=== PATIENT | male | born 2000 | race Caucasian/White ===

== ENCOUNTER 2021-01-24 09:50 | Emergency (ER) | payer MEDICAID, SELFPAY ==
--- NOTE | 2021-01-24 09:51 | ECG_ITS ---
APPROVED REPORT Exam: Resting ECG HR:92 bpm ECG Measurements Heart Rate 92 AXES MN 130 P 46 QRSd 92 QRS 68 QT 332 T 34 QTc 410 Conclusion Normal sinus rhythm Normal ECG Electronically signed by : Derek Becerra MD 01/25/2021 21:05:41
[2021-01-24 09:54] VITALS: BP 151/88; PULSE 89; RESP 20; TEMP 36.7; O2SAT 98; BMI 34.4
--- NOTE | 2021-01-24 09:56 | HMH.EDCP ---
ED Disposition Clinical Impression: Atypical chest pain Disposition: Home, Self-Care Condition on Discharge: Good Instructions: DI for Atypical Chest Pain Additional Instructions: Follow-up with your primary care physician in about 1 week even if you feel well. Return to the emergency department immediately if you feel worse in any way. Avoid all kinds of drugs. You may take gstz-lld-zedofyr ibuprofen for the chest pain you have experienced today. - Critical Care Critical Care Time: No Attestation: On , the high probability of a clinically significant, sudden or life threatening deterioration of the following system(s) required my full and direct attention, intervention and personal management. The time I documented below is in addition to time spent performing reported procedures but includes the following listed in this critical care notation. Medical Decision Making - Medical Records Medical records reviewed: Yes: I reviewed the patient's medical records. - Keith Inquiry Pt receiving controlled substance: No Vital Signs: 01/24/21 09:54 Temperature 98.1 F Temperature Source Oral Pulse Rate [Right] 89 Respiratory Rate 20 Blood Pressure [Right Arm] 151/88 H Blood Pressure Mean [Right Arm] 109 02 Sat by Pulse Oximetry 98 Oxygen Delivery Method Room Air - Lab Data Lab results reviewed: Yes: I reviewed the patient's lab results. Lab Results 01/24/21 09:55: WBC 7.2, RBC 5.10, Hgb 15.2, Hct 43.0, MCV 84.3, MCH 29.9, MCHC 35.4, RDW 12.7, Plt Count 266, MPV 8.3, Neut % (Auto) 60.9, Lymph % (Auto) 28.1, Mower % (Auto) 5.9, Eos % (Auto) 4.3, Baso % (Auto) 0.7, Neut # (Auto) 4.4, Lymph # (Auto) 2.0, Mower # (Auto) 0.4, Eos # (Auto) 0.3, Baso # (Auto) 0.1 01/24/21 09:55: Sodium 140, Potassium 4.1, Chloride 106, Carbon Dioxide 27, Anion Gap 11.1, BUN 11, Creatinine 0.80, Estimated Creat Clear 227, Estimated GFR 123, Est GFR ( Amer) 149, Glucose 103 H, Calcium 9.3, Total Bilirubin 0.4, AST 28, ALT 26, Alkaline Phosphatase 91, Troponin I < 0.01, Total Protein 7.6, Albumin 4.6, Globulin 3.0, Albumin/Globulin Ratio 1.5 Result diagrams: 01/24/21 09:55 01/24/21 09:55 Orders (Tests/Meds): ED MEDICATIONS Discontinued Medications Generic Name Dose Route Start Last Admin Trade Name Migel PRN Reason Stop Dose Admin Aspirin 324 mg 01/24/21 09:58 01/24/21 10:07 Aspirin 81mg Chewable Tablet PO 01/24/21 09:59 324 mg ONCE ONE Administration Ketorolac Tromethamine 30 mg 01/24/21 09:58 01/24/21 10:06 Ketorolac 30mg/Ml Vial IV 01/24/21 09:59 30 mg ONCE ONE Administration ORDERS Category Date Time Status Troponin I Q3H Lab 01/24/21 13:00 Ordered Troponin I Q3H Lab 01/24/21 16:00 Ordered - Radiology Data #1 Image(s): Chest Image Reviewed: Yes I reviewed the patient's radiology results, Yes I reviewed the patient's radiology image, Yes I reviewed the patient's radiology image w/the ED provider Preliminary Findings: Normal/NAD - ECG Data Tracing #1 I reviewed this ECG and interpreted as documented below: The patient is EKG was done at 952. It shows a normal sinus rhythm at 92 bpm there is no evidence of ischemia, there no dysrhythmias, the axes are normal. This is a normal EKG. Normal Sinus Rhythm: Yes - Reevaluation(s) Time: 10:50 Reevaluation #1: The patient's chest pain improved with Toradol. - ELTON Score for Non-Stemi Age of Patient: <30 years old Heart Rate: 70-89 bpm Systolic Blood Pressure: 140-159 mmHg Serum Creatinine: 0.80-1.19 mg/dl CHF Killip Class: I-No CHF Other Risk Factors: None Non-Stemi Risk Score: 40 Medical Decision Narrative: The patient presented to the emergency department complaining of midsternal sharp chest pain. It is reproducible with palpation and movement. The patient has no risk factors for coronary artery disease. His work-up in the emergency department did not reveal any dangerous or life-threatening conditions cau
--- NOTE | 2021-01-24 09:58 | XR_ITS ---
PROCEDURE: XR CHEST PORTABLE CLINICAL HISTORY: Dyspnea, COVID+, CP COMPARISON: No exams were available for comparison FINDINGS: The cardiomediastinal silhouette and pulmonary vascularity are within normal limits. The lungs are clear without infiltrates, suspicious nodules, or pleural effusions. No acute bony abnormalities. IMPRESSION: No acute findings. Dictated by: Francisco Javier Esqueda MD 01/24/2021 10:21 Francisco Javier Esqueda MD in [place] 01/24/2021 10:21
[2021-01-24 10:07] LABS: Basophils # 0.1 K/mm3 (0-0.2); Basophils % 0.7 % (0.1-2.0); Eosinophils # 0.3 K/mm3 (0.0-0.4); Eosinophils % 4.3 % (0.1-12.0); Hemoglobin 15.2 g/dL (14.1-18.0); Lymphocytes % 28.1 % (10-50); Mean Corpuscular HGB Conc 35.4 g/dL (31.8-35.4); Mean Corpuscular Hemoglobin 29.9 pg (27.0-31.2); Mean Corpuscular Volume 84.3 fl (80-94); Mean Platelet Volume 8.3 fl (7.4-10.4); Monocytes # 0.4 K/mm3 (0.1-1.0); Monocytes % 5.9 % (1.7-9.3); Neutrophils # 4.4 K/mm3 (1.8-7.8); Neutrophils % 60.9 % (37.0-80.0); Platelet Count 266 K/mm3 (142-424); Red Cell Distribution Width 12.7 % (11.5-17.5); White Blood Count 7.2 K/mm3 (4.5-13.0)
[2021-01-24 10:11] LABS: Potassium 4.1 mmoL/L (3.5-5.1); Sodium 140 mmol/L (136-145)
[2021-01-24 10:12] LABS: Chloride 106 mmol/L (98-107)
[2021-01-24 10:14] LABS: Alanine Aminotransferase 26 U/L (12-78); Albumin Level 4.6 g/dl (3.5-5.0); Albumin/Globulin Ratio 1.5 (1.1-1.8); Alkaline Phosphatase 91 U/L (38-126); Anion Gap 11.1 mEq/L (5-15); Aspartate Amino Transferase 28 U/L (17-59); Bilirubin,Total 0.4 mg/dl (0.2-1.3); Blood Urea Nitrogen 11 mg/dl (9-20); Calcium 9.3 mg/dl (8.4-10.2); Carbon Dioxide 27 mmol/L (22.0-30.0); Creatinine Clearance Estimated 227 mL/min (50-200); Estimated Glomerular Filt Rate 123 ml/min (>60); GFR (African American) 149 ML/MIN (>60); Glucose 103 mg/dl (74-100); Total Protein,Serum 7.6 g/dl (6.3-8.2)
[2021-01-24 10:27] LABS: Troponin I < 0.01 ng/ml (0.00-0.034)
[2021-01-24 11:21] VITALS: BP 150/84; PULSE 95; RESP 20; TEMP 36.7; O2SAT 98
== END 2021-01-24 11:22 | disposition home or self-care (01) ==
PROVIDERS: Emergency Provider Emergency Medicine; PCP Internal Medicine
DX: R07.89 Other chest pain (principal)
CPT/HCPCS: 71045; 80053; 84484; 85025; 93005; 96374; 99282

== ENCOUNTER 2025-06-16 11:10 | Emergency (ER) | payer OTHER, SELFPAY ==
--- OUTSIDE RECORDS SUMMARY | 2025-04-30 22:33 | XMS_ITS | Continuity of Care Document ---
Author Organization [facility] Phone Care Team Providers Care [employer] Teacher Name Role Phone CODY JIMENEZ Admitting Unavailable YAJAIRA, ALIS Unavailable Unavailable CODY JIMENEZ Surgeon Unavailable CODY JIMENEZ Primary Attending Unavailable YAJAIRA, ALIS Primary Care Unavailable ALLERGIES AND ADVERSE REACTIONS ALLERGIES AND ADVERSE REACTIONS Code System Allergy Substance Adverse Reaction Date Reaction (Severity) Comment Status Reported By Updated By No known drug Allergies (Free Text Allergy) Adverse reaction to substance Not Specified active [id number] on April 29, 2025 3:49:27 PM UTC RESULTS Patient: GREG Bauman Date of : [birth year] LABORATORY RESULTS ORDER 100: ACUTE HEPATITIS P KAYLIE (LOINC: 09886-2) ORDER DATE: April 29, 2025 3:19:00 PM UTC Specimen Source: SERUM Specimen Type: Serum specime n PERFORMING LAB: [facility] [address] [facility] [facility] [id number] Result Comment: April 30, 2025 3:10:00 PM UTC . Result Comment: April 30, 2025 3:10:00 PM UTC Not infected with HCV unless early or acute infection is Result Comment: April 30, 2025 3:10:00 PM UTC suspected (which may be delayed in an immunocompromised Result Comment: April 30, 2025 3:10:00 PM UTC individual), or other evidence exists to indicate HCV Result Comment: April 30, 2025 3:10:00 PM UTC infection. Result Comment: April 30, 2025 3:10:00 PM UTC Performed at: [facility] Result Comment: April 30, 2025 3:10:00 PM UTC [address], [place] [id number] Result Comment: April 30, 2025 3:10:00 PM UT Typist: Bladimir Soto PhD, Phone: [phone] Result Comment: April 30, 2025 3:10:00 PM UTC Final Result Date: April 29, 2025 3:50:00 PM UTC (TECH: LAB) LOINC TEST [place] [address]4 Hepatitis A virus Ig M Ab [Presence] in Serum or Plasma by Immunoassay N Negative Negative April 182024 3:50:00 PM UTC (TECH: LAB) 5196-1 Hepatitis B virus surface Ag [Presence] in Serum or Plasma by Immunoassay N Negative Negative April 29 3:50:00 PM UTC (TECH: LAB) 41382-7 Hepatitis B virus co re IgM Ab [Presence] in Serum or Plasma by Immunoassay N Negative Negative April 29 3:50:00 PM UTC (TECH: LAB) 84142-2 Hepatitis C virus Ig G Ab [Presence] in Serum or Plasma by Immunoassay N Non Reactive Non Reactive April 182024 3:50:00 PM UTC (TECH: LAB) 3281-3 Lupus anticoagulant [interpretation] in Platelet poor plasma N Comment April 3:50:00 PM UTC (TECH: LAB) LABORATORY NARRATIVE RESULTS Information is not available RADIOLOGY RESULTS Information is not available PATHOLOGY NARRATIVE RESULTS Information is not available MICROBIOLOGY RESULTS No Micro Labs/Results Exist for Patient BLOOD ADMIN RESULTS Information is not available MEDICATIONS HOME MEDICATIONS Status RXNORM ND Medication Dose Route Frequency Dates Comments Reported By Updated By Active Simran xtMed lisinopril oral unknown 0.0 Last Dose: [id number] on April 29, 2025 3:49:27 PM UT DISCHARGE MEDICATIONS Status RXNORM NDC Medication Dose Route Frequency Dates Dis pense Data Comments Physician Updated By No Discharge Medication Info rmation Available INPATIENT MEDICATIONS Status RXNORM ND Medication Dose Route Frequency Rat e Quantity Dates Indication Dispense Data Comments Physician Updated By Sam inbladimir [phone] acetaminoph en (TYLENOL) 500 MG TABS 500.0 MG ORAL ONE TIME ONLY (SCHEDULED DOSE) Start: er 2024 3:24:0 0 PM UT End: er 2024 3:24:0 0 PM UT TONY ROSS [facility] ED on April 29, 2025 3:23:00 PM UT Discont inued [id number] 1040 010 tetanus/dip theria/pert ussis 0.5 ML SUSP 0.5 ML ONE TIME ONLY (SCHEDULED DOSE) Start: 2024 3:24:0 0 PM UTC End: 2024 3:24:0 0 PM UTC TONY ROSS [facility] ED on April 29, 2025 3:23:00 PM UT SOCIAL HISTORY SOCIAL HISTORY - Smoking Status SNOMED-CT Social History Element Description Effective Dates Offered Cessation Comment Updated By [id number] Current Tobacco smoking status Current Every Day Smoker [id number] on April 29, 2025 3:50:16 PM UT [id number] Historical Tobacco smoking status Unknown If Ever Smoked [id number] on December 11, 2024 3:23:48 AM UT SOCIAL HISTORY - Gender Sex: Male SOCIAL HISTORY - Status : status i nformation is not available Intention in Next Year: intention information is not available SOCIAL HISTORY - Assessments Code System Description Status Date Value of Assessment Updated By Comment Assessment Information is no t available SOCIAL HISTORY - [place] Affiliation [place] information is not av ailable SOCIAL HISTORY - Legal Sex Legal Sex information is not available SOCIAL HISTORY - Sexual Behavior Sexual Orientation Gender Identity SNOMED-CT Description SNO MED -CT Description Activity Level No of Partners Partner Type UpdatedBy Information is not available SOCIAL HISTORY - Occupation Occupation information is no t available VITAL SIGNS PATIENT VITAL SIGNS This section displays the mo st recent value for each vital sign as of May 01, 2025 3:33:46 AM [place] Loinc Code Vital Sign Activity Date Result Updated By 8302-2 Body height April 29 3:05:39 PM UTC 177.8 cm (70.0 in) [id number] on April 29, 2025 3:05:[place] [address]-4 Body mass index (BMI ) [Ratio] April 29, 2025 3:05:39 PM UTC 44.918 kg/m2 3140-1 Body Surface Area Derived From Formula April 29, 2025 3:05:39 PM UTC 2.5252 m2 8310-5 Body temperature April 29 3:03:00 PM UTC 98.8 [degF] 92823-9 Body weight Measured April 3:05:39 PM UTC 142.0 kg (313.0 lb) [id number] on April 29, 2025 3:05:39 PM UTC 8462-4 Diastolic blood pressure April 29, 2025 3:40:00 PM UTC 88.0 mm[Hg] 8867-4 Heart rate April 29 3:40:00 PM UTC 86 /min 98801-2 Oxygen saturation in Arterial blood by Pulse oximetry April 29, 2025 3:40:00 PM UTC 97.0 % 9279-1 Respiratory rate April 29 3:03:00 PM UTC 18 /min 8480-6 Systolic blood pressure April 29, 2025 3:40:00 PM UTC 175.0 mm[Hg] PEDIATRIC GROWTH CHART - VITAL SIGNS This section displays Head C ircumference Percentile, Weight for Length Percentile and BMI Percentile Loinc Code Pediatric Measure Age (Months) Result Updat ed By No Pediatric Growth Chart Pe rcentile Information Available. HEALTH CONCERNS Problems Concern Status Health Concern problem infor mation not available. Smoking Status Status Years Used Consumed packs p er day Health Concern smoking histo ry information not available. Family History Concern Status Health Concern family histor y information not available. 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 Code System Diagnosis Onset Date Diagnosis information is not available. ABSTRACT DIAGNOSES Code System Diagnosis Updated By Abatement Date S61.011A ICD10 LACERATION WITHO UT FOREIGN BODY OF RIGHT THUMB WITHOUT DAMAGE TO NAIL, INITIAL ENCOUNTER [id number] on May 01, 2025 3:32:46 AM UT S61.011A ICD10 LACERATION WITHO UT FOREIGN BODY OF RIGHT THUMB WITHOUT DAMAGE TO NAIL, INITIAL ENCOUNTER [id number] on May 01, 2025 3:32:46 AM UT I10 ICD10 ESSENTIAL (PRIMA RY) HYPERTENSION [id number] on May 01, 2025 3:32:46 AM UT Z79.899 ICD10 OTHER FDC (CURRENT) DRUG THERAPY [id number] on May 01, 2025 3:32:46 AM UTC F17.290 ICD10 NICOTINE DEPENDE NCE, OTHER TOBACCO PRODUCT, UNCOMPLICATED [id number] on May 01, 2025 3:32:46 AM UTC W26.8XXA ICD10 CONTACT WITH OTH ER SHARP OBJECT(S), NOT ELSEWHERE CLASSIFIED, INITIAL ENCOUNTER [id number] on May 01, 2025 3:32:46 AM UTC Y93.E5 ICD10 ACTIVITY, FLOOR MOPPING AND CLEANING [id number] on May 01, 2025 3:32:46 AM UTC Y92.89 ICD10 OTHER SPECIFIED PLACES THE PLACE OF OCCURRENCE OF THE EXTERNAL CAUSE [id number] on May 01, 2025 3:32:46 AM UTC Z23 ICD10 ENCOUNTER FOR IMMUNIZATION B [id number] on May 01, 2025 3:32:46 AM UTC CARE TEAM Care [employer] Teacher Role CODY JIMENEZ Admitting ALIS YAJAIRA Referring CODY TONY Surgeon CODY JIMENEZ Primary Attending ALIS YAJAIRA Primary Care CARE TEAM CARE corporate pilot Role on Team Location Telecom Status Start Date End Jesse e Updated By TONY ROSS Surgeon normal Novemb er 2024 2:55:00 PM UTC April 29, 2025 3:59:00 PM UTC [id number] on May 01, 2025 3:33:20 AM UTC YAJAIRA ALIS PCP normal April 29, 2025 3:13:40 PM UTC April 29, 2025 3:59:00 PM UTC [id number] on May 01, 2025 3:33:20 AM UTC YAJAIRA ALIS Referring normal April 29, 2025 3:13:40 PM UTC April 29, 2025 3:59:00 PM UTC [id number] on May 01, 2025 3:33:20 AM UTC TONY ROSS Attending normal Novemb er 2024 3:13:40 PM UTC April 29, 2025 3:59:00 PM UTC [id number] on May 01, 2025 3:33:20 AM UTC TONY ROSS Admitting normal Novemb er 2024 3:13:40 PM UTC April 29, 2025 3:59:00 PM UTC [id number] on May 01, 2025 3:33:20 AM UTC NO DEFINED PRIMARY C PCP normal April 29, 2025 2:56:14 PM UTC April 29, 2025 3:13:40 PM [facility] [id number] on May 01, 2025 3:33:20 AM [facility]
[2025-06-16 11:10] VITALS: BP 158/91; PULSE 97; RESP 18; TEMP 37; O2SAT 98; BMI 43.0
--- NOTE | 2025-06-16 11:21 | ED_ITS ---
Discharge Plan Disposition Patient Disposition: Home, Self-Care Prescriptions Prescriptions: New gtokejbutiwdycp-eqxxsxflq-JT [Bromfed DM] 2-30-10 mg/5 mL syrup 5 ml PO Q6H PRN (Reason: allergy symptoms) Qty: 200 0RF Referrals Follow up/Referrals: Isaias Alexandre MD [Primary Care Provider, Medical] - See instructions Activity Restrictions/Add. Instructions Additional Instructions/Restrictions: Increase fluids and rest. Take Tylenol and ibuprofen for pain and fever if needed. If symptoms persist or do not improve please return to the ED or see your PCP in follow-up. Clinical Impressions Clinical Impression: Viral illness Instructions Patient Instructions: DI for Viral Syndrome, DI for Nausea in Adults Print Language Print Language: Urdu Discharge ED Provider: Antonio Allen General Adult HPI <Kristine Briseno (ED), SUSTAINABILITY ENGINEER - Last Filed: 06/16/25 12:22> General Chief complaint: Nausea/Vomiting/Diarrhea Stated complaint: vomiting, congestion, weakness Time Seen by Provider: 06/16/25 11:14 History of Present Illness HPI narrative: 24-year-old male presents to the ED today with complaint of vomiting, congestion, weakness, fatigue, headache that started yesterday. He has had no fevers. He says he has been coughing up productive sputum. He says his worst symptom is the headache and congestion. His family is also here with similar complaints. Related Data Previous Rx's ?Medication ?Instructions ?Recorded abohhuaalnjtukg-dxrlxfpmdchdhfe-BQ 5 ml PO Q6H PRN all ergy symptoms 06/16/25 2 mg-30 mg-10 mg/5 mL oral syrup #200 mL (Bromfed DM) Allergies Allergy/AdvReac Type Severity Reaction Status Date / Time No Known Allergies Allergy Verified 01/24/21 09:59 PFSH <Kristine Briseno (ED), SUSTAINABILITY ENGINEER - Last Filed: 06/16/25 12:22> PFS Disclaimer: The information contained in this section may have been updated after the patient was seen, as this information can be updated by other users. Social History (Updated 06/16/25 @ 12:22 by Kristine Briseno (ED), SUSTAINABILITY ENGINEER) Smoking Status: Never smoker alcohol intake: never current occupational status: other Travel in the last 8 weeks?: None Have you lived/traveled outside US in past 30 days?: No Contact w/someone who lives/traveled outside US past 30 days?: No Exposure to someone with infectious disease in past 14 days?: No Do you have a fever (greater than 100.4 F or 38 C)?: No Have you tested positive for COVID-19?: No Exposed to someone with COVID-19 in past 14 days?: No Do you have a sore throat?: No Do you have a cough?: No Do you have any weakness?: No Do you have any diarrhea?: No Are you experiencing any unusual bleeding?: No Do you have any muscle aches/pain?: No Do you have any abdominal pain?: No Are you experiencing loss of taste or smell?: No Other Medical History Have you received the Flu Vaccine for this season: No Have you received the Pneumonia Vaccine: No <Kristine Briseno (ED), SUSTAINABILITY ENGINEER - Last Filed: 06/16/25 12:22> ROS Obtained: Yes Systems reviewed as appropriate & no additional complaints except as documented Constitutional Constitutional: Reports as per HPI Physical Exam <Kristine Briseno (ED), SUSTAINABILITY ENGINEER - Last Filed: 06/16/25 12:22> General General appearance: alert Head Head exam: normocephalic Eye Eye exam: Present PERRL and EOMI ENT ENT exam: Present normal oropharynx and mucous membranes moist Neck Neck exam: Present full ROM and trachea midline Respiratory Respiratory exam: Present normal lung sounds bilaterally Cardiovascular Cardiovascular exam: Present regular rate, normal rhythm, normal heart sounds, +S1 and +S2 Abdominal Exam Abdominal exam: Present soft and normal bowel sounds Extremities Exam Extremities exam: Present full ROM Neurological Exam Neurological exam: Present alert and oriented X3 Skin Skin exam: Present warm and dry Medical Decision Making <[facility] (ED), SUSTAINABILITY ENGINEER - Last Filed: 06/16/25 12:22> Medical Records Screening: Per USPSTF and CDC recommendations, given the prevalence of disease in our region, it is our hospital?s policy to screen for HIV and viral Hepatitis for all patients aged 18 and over and those with ongoing risk factors. Keith Inquiry Pt receiving controlled substance: No Keith was queried for this patient: No Vital Signs: 06/16/25 11:10 Temperature 98.6 F Temperature Source Oral Pulse Rate [Right Radial] 97 H Respiratory Rate 18 Blood Pressure [Right Arm] 158/91 H Blood Pressure Mean [Right Arm] 113 Blood Pressure Source [Right Arm] Automatic Cuff Blood Pressure Position [Right Arm] Sitting 02 Sat by Pulse Oximetry 98 Oxygen Delivery Method Room Air Orders (Tests/Meds): ED MEDICATIONS Discontinued Medications Generic Name Dose Route Start Last Admin Trade Name Migel PRN Reason Stop Dose Admin Acetaminophen 1,000 mg 06/16/25 11:33 06/16/25 11:44 Acetaminophen 500mg Tab PO 06/16/25 11:34 1,000 mg ONCE ONE Administration Dexamethasone Sodium Phosphate 8 mg 06/16/25 11:33 06/16/25 11:43 Dexamethasone 4mg/Ml 5ml Mdv IM 06/16/25 11:34 8 mg ONCE ONE Administration Ketorolac Tromethamine 30 mg 06/16/25 11:33 06/16/25 11:44 Ketorolac 30mg/Ml Vial IM 06/16/25 11:34 30 mg ONCE ONE Administration ORDERS Category Date Time Status Chest XR -- portable [XR chest portable] Stat Exams 06/16/25 11:32 Taken Rapid PCR Covid and Flu A/B Stat Lab 06/16/25 11:21 Received Medical Decision Narrative: patient is a 24-year-old male presenting to the emergency department for evaluation of vomiting, congestion, weakness and fatigue that started yesterday. Patient is hemodynamically stable and nontoxic-appearing upon arrival, afebrile. Differential diagnosis includes viral illness, flu, COVID, among others. Workup will be conducted with specific imaging and swab. Initial inventions include analgesics. Chest x-ray read by Dr. Allen as nothing acu te. Radiology has not read yet but will call with radiology results if different. Patient will be discharged with cough medicine and treated symptomatically. Patient safe for discharge home. <Antonio Allen MD - Last Filed: 06/16/25 12:25> Vital Signs: 06/16/25 11:10 Temperature 98.6 F Temperature Source Oral Pulse Rate [Right Radial] 97 H Respiratory Rate 18 Blood Pressure [Right Arm] 158/91 H Blood Pressure Mean [Right Arm] 113 Blood Pressure Source [Right Arm] Automatic Cuff Blood Pressure Position [Right Arm] Sitting 02 Sat by Pulse Oximetry 98 Oxygen Delivery Method Room Air Orders (Tests/Meds): ED MEDICATIONS Discontinued Medications Generic Name Dose Route Start Last Admin Trade Name Migel PRN Reason Stop Dose Admin Acetaminophen 1,000 mg 06/16/25 11:33 06/16/25 11:44 Acetaminophen 500mg Tab PO 06/16/25 11:34 1,000 mg ONCE ONE Administration Dexamethasone Sodium Phosphate 8 mg 06/16/25 11:33 06/16/25 11:43 Dexamethasone 4mg/Ml 5ml Mdv IM 06/16/25 11:34 8 mg ONCE ONE Administration Ketorolac Tromethamine 30 mg 06/16/25 11:33 06/16/25 11:44 Ketorolac 30mg/Ml Vial IM 06/16/25 11:34 30 mg ONCE ONE Administration ORDERS Category Date Time Status Chest XR -- portable [XR chest portable] Stat Exams 06/16/25 11:32 Taken Rapid PCR Covid and Flu A/B Stat Lab 06/16/25 11:21 Received Medical Decision Narrative: patient is a 24-year-old male presenting to the emergency department for evaluation of vomiting, congestion, weakness and fatigue that started yesterday. Patient is hemodynamically stable and nontoxic-appearing upon arrival, afebrile. Differential diagnosis includes viral illness, flu, COVID, among others. Workup will be conducted with specific imaging and swab. Initial inventions include analgesics. Chest x-ray read by Dr. Allen as nothing acute. Radiology has not read yet but will call with radiology results if different. Patient will be discharged with cough medicine and treated symptomatically. Patient safe for discharge home. Antonio Allen MD: I was consulted by the TERRY, and we discussed the complexity of the problems being addressed. I approved the treatment and management plan for this patient's care in the emergency department, thus performing a substantive portion of the medical decision making. Additional diagnostic imaging such as hematologic labs was considered but patient is well-appearing with deferred. Critical Care <Kristine Briseon (ED), SUSTAINABILITY ENGINEER - Last Filed: 06/16/25 12:22> Critical Care Time Critical Care Time: No
[2025-06-16 11:27] LABS: Coronavirus 19, PCR Not Detected (NotDetected); Influenza A, PCR Not Detected (NotDetected); Influenza B, PCR Not Detected (NotDetected)
--- NOTE | 2025-06-16 11:32 | XR_ITS ---
FINAL REPORT CLINICAL HISTORY: cough, smoker COMPARISON: 01/24/2021 FINDINGS: A portable view of the chest was obtained. Cardiac and mediastinal silhouettes are within normal limits. The lungs are clear. There is no pleural effusion or pneumothorax. IMPRESSION: No acute process on this portable exam. Reviewed, Interpreted and Dictated by Dianna Kuhn MD Transcribed by Funmilayo [place] Authenticated and . [facility]
--- OUTSIDE RECORDS SUMMARY | 2025-06-16 11:37 | XMS_ITS | Continuity of Care Document ---
Author Organization [facility] Address [address] [place] [address] Phone Care Team Providers Care Bright Cutter Name Role Phone Melinda Yañez APRN Primary Care Provider [phone] Encounters Date Type Department Care Team Description 05/11/2025 Refill [facility] [address] [place] [address] Melinda Yañez APRN Medication Refill 02/12/2025 9:00 AM EDT Clinical Support [address] [phone] Song Reyes MD Encounter for removal of sutures (Primary Dx) 02/04/2025 Results Follow-Up [address] [phone] Song Reyes MD DERMATOPATHOLOGY TISSUE SEND OUT REQUEST 01/29/2025 2:00 PM EDT Office Visit [address] [phone] Song Reyes MD Dermatofibroma (Primary Dx); Pain 12/25/2024 10:00 AM EDT Office Visit [address] [phone] Song Reyes MD Dermatofibroma (Primary Dx); Multiple benign nevi; Lentigines 11/24/[address] [address] Uday Lopez MD 11/17/2024 Telephone [facility] [address] [place] [address] Melinda Yañez APRN Referral ([facility] Gonz[facility] Ledbetter) 11/12/2024 Travel 11/12/2024 7:30 AM EDT - 11/12/2024 7:51 AM EDT Surgery [facility] [address] [place] [address] Uday Lopez MD CARPAL TUNNEL RELEASE ENDOSCOPIC 11/12/2024 7:03 AM EDT - 11/12/2024 8:02 AM EDT Hospital Encounter [facility] [address] [place] [address] Uday Lopez MD Discharge Disposition: Home or Self Care 11/11/2024 Telephone [facility] [address] [address] Uday Lopez MD Other (sx time ) 11/04/2024 Orders Only [facility] Sleep Medicine [address] [address] Avila Foster MD Obstructive sleep apnea (Primary Dx) 11/04/2024 Orders Only [facility] Sleep Medicine [address] [phone] Avila Foster MD Obstructive sleep apnea (Primary Dx) 11/04/2024 10:30 AM EDT Office Visit [facility] Sleep Medicine [address] [address] Avila Foster MD Snores (Primary Dx); Tired; Obstructive sleep apnea; PATRIC (obstructive sleep apnea) 10/30/2024 Travel 10/27/2024 Orders Only [facility] [address] [facility] [address] [address] Uday Lopez MD Right carpal tunnel syndrome (Primary Dx) 10/27/2024 Orders Only [facility] [address] [place] [address] Uday Lopez MD Left carpal tunnel syndrome (Primary Dx) 10/27/2024 8:00 AM EDT Office Visit [facility] [address] [place] [address] [place] [address] Uday Lopez MD Bilateral carpal tunnel syndrome (Primary Dx) 10/22/2024 7:53 AM EDT - 10/22/2024 11:59 PM EDT Hospital Encounter [facility] [address] [place] [address] Emg, Christopher Edg Bilateral carpal tunnel syndrome Discharge Disposition: Home or Self Care 10/10/2024 11:00 AM EDT Office Visit [facility] [address] [facility] [address] [place] [address] Uday Lopez MD Bilateral carpal tunnel syndrome (Primary Dx) 10/09/2024 12:00 PM EDT - 10/09/2024 11:59 PM EDT Hospital Encounter [facility] [address] [place] [address] UsLuke geronimo Sleep Obstructive sleep apnea Discharge Disposition: Home or Self Care 09/22/2024 Orders Only [facility] [address] [place] [address] Avila Foster MD Obstructive sleep apnea (Primary Dx) 09/18/2024 Orders Only [facility] [address] [place] [address] Melinda Yañez APRN High cholesterol (Primary Dx) 09/17/2024 Telephone [facility] [address] 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); Gastroesophageal reflux disease, unspecified whether esophagitis present; High cholesterol; History of tobacco use; Elevated liver enzymes; Prediabetes; Vitamin D deficiency; Skin cancer screening; Hx of wheezing 09/08/2024 12:45 PM EDT Office Visit [facility] Sleep Medicine [address] [place] [address] Avila Foster MD Obesity, Class III, BMI 40-49.9 (morbid obesity) (HCC) (Primary Dx); Gastroesophageal reflux disease, unspecified whether esophagitis present; Cigarette nicotine dependence with nicotine-induced disorder; Generalized anxiety disorder; Suspected sleep apnea; 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 [address] Parker Cornell MD Cough, unspecified type Discharge Disposition: Home or Self Care 05/27/2024 11:17 AM EST - 05/27/2024 12:21 PM EST Hospital Encounter [facility] [address] [place] [address] Melinda Yañez HOUSE ADMIN Elevated liver enzymes Discharge Disposition: Home or Self Care 05/26/2024 Orders Only [facility] [address] [place] [phone] Parker Cornell MD Cough, unspecified type (Primary Dx) 05/26/[address] [place] [phone] Melinda Yañez APRN Appointment Needed (lab appt needed - please call to set this up ) 05/26/[address] [place] [phone] Melinda Yañez APRN Orders (mom asking to have imaging orders placed to check patient's lungs since stopping smoking- lingering cough -- please advise.) 05/20/[address] [place] [phone] Melinda Yañez APRN Results (Lab results given); Patient Returning Call (Missing Rx for Metformin) 05/14/2024 Orders Only [address] [place] [phone] Melinda Yañez APRN Elevated liver enzymes (Primary Dx); Vitamin D deficiency; High cholesterol 05/13/2024 8:30 AM EST Office Visit [address] [place] [phone] Melinda Yañez APRN Annual physical exam (Primary Dx); Screening for thyroid disorder; Lipid screening; Gastroesophageal reflux disease, unspecified whether esophagitis present; Obesity, Class III, BMI 40-49.9 (morbid obesity) (HCC); Suspected sleep apnea; Peripheral edema; Need for hepatitis C screening test; Secondary hypertensive syndrome; Screening for STDs (sexually transmitted diseases) 12/05/[address] [place] [phone] Danuta Walter MD Paperwork/forms (Copy of med list ) 05/29/[address] [place] [phone] Danuta Walter MD Release of Information (medical/immunization record,medication list) 01/24/[address] [place] [phone] Parker Cornell MD Medication Refill 11/08/[address] [place] [phone] Danuta Walter MD Other (Phone call ) 11/07/[address] [place] [phone] Danuta Walter MD Symptom Call (2 family loses ) 10/25/2021 Refill [facility] [address] [place] [phone] Danuta Walter MD Medication Refill 09/28/2021 Refill [facility] [place] [address] [place] [phone] Danuta Walter MD Medication Refill 09/16/[address] [place] [phone] Danuta Walter MD Other (verbal okay for at home covid tests) 06/24/2021 Refill [facility] [address] [place] [phone] Melinda Yañez, HOUSE ADMIN Medication Refill 05/30/2021 Refill [facility] [address] [place] [phone] Danuta Walter MD Medication Refill 05/26/2021 Travel 05/26/2021 8:30 AM EST Office Visit [address] [place] [phone] Melinda Yañez, HOUSE ADMIN Upper respiratory tract infection, unspecified type (Primary Dx); Cough 05/06/2021 11:00 AM EST Office Visit [facility] [address] [facility] [address] [place] [address] Uday Lopez MD Carpal tunnel syndrome of left wrist (Primary Dx) 04/27/2021 Refill [facility] [address] [place] [phone] Danuta aWlter MD Medication Refill 04/15/[address] [place] [phone] Danuta Walter MD Appointment Needed (vomiting, diarrhea x 2 days) 04/08/2021 9:45 AM EDT [facility] [address] [place] [address] Uday Lopez MD Carpal tunnel syndrome of left wrist (Primary Dx) 04/04/2021 10:20 AM EDT Office Visit [address] [place] [phone] Parker Cornell MD Carpal tunnel syndrome on both sides (Primary Dx) 02/01/2021 Travel 02/01/2021 9:00 AM EDT Office Visit [address] [place] [phone] Danuta Walter MD Chest pain at rest (Primary Dx); Vitamin D deficiency; Hyperlipidemia with target LDL less than 100; Trochanteric bursitis of left hip; Gastroesophageal reflux disease, unspecified whether esophagitis present; Methamphetamine use disorder, moderate, in early remission ([facility]) 12/31/2020 Travel 12/31/2020 3:00 PM EDT Office Visit [address] [place] [phone] Parker Cornell MD Essential hypertension (Primary Dx); Cigarette nicotine dependence with nicotine-induced disorder; Generalized anxiety disorder; Allergic rhinitis due to cats; Gastroesophageal reflux disease, unspecified whether esophagitis present; Insomnia, persistent; Muscle spasm; History of drug abuse ([facility]) 12/30/[address] [place] [phone] Danuta Walter MD Appointment Needed (rehap disch, Recovery works, 12/29/20) 11/19/2020 12:43 PM EDT - 11/19/2020 11:59 PM EDT Hospital Encounter [facility] [address] [place] [address] Cigarette nicotine dependence with nicotine-induced disorder Discharge Disposition: Home or Self Care 11/19/2020 Travel 11/03/2020 9:00 AM EDT Office Visit [facility] [facility] [address] [place] [address] Danuta Walter MD Establishing care with new doctor, encounter for (Primary Dx); Well adult exam; Advanced directives, counseling/discussion; Screening for deficiency anemia; Screening for diabetes mellitus (DM); Screening for hyperlipidemia; Screening for thyroid disorder; Obesity, Class I, BMI 30-34.9; Gastroesophageal reflux disease, unspecified whether esophagitis present; Encounter for vitamin deficiency screening; Cigarette nicotine dependence with nicotine-induced disorder; Generalized anxiety disorder; Allergic rhinitis due to cats; Shortness of breath 10/05/2020 Travel 10/01/2020 Travel 09/17/2020 Travel Allergies Active Allergy Reactions Criticality Noted Date Comments Cat Dander Hives High 11/03/2020 Medications lisinopriL-hydro chlorothiazide (PRINZIDE;ZESTOR ETIC) 20-25 mg Oral TabletIndication s:Peripheral edema,Secondary hypertensive syndrome Take 1 Tablet by mouth daily. 90 Tablet 3 4 Active cetirizine (ZYRTEC) 10 mg Oral TabletIndication s:Chronic cough Take 1 Tablet by mouth daily. 90 Tablet 3 4 Active omeprazole (PRILOSEC) 40 mg Oral Capsule, Delayed Release(E.C.)Ind ications:Gastroe sophageal reflux disease, unspecified whether esophagitis present Take 1 Capsule by mouth daily. 90 Capsule 3 5 Active albuterol (PROVENTIL HFA;VENTOLIN HFA) 90 mcg/actuation Inhl HFA Aerosol InhalerIndicatio ns:Hx of wheezing Inhale 2 Puffs into the lungs every 4 hours as needed for Wheezing. 1 Each 2 5 Active atorvastatin (LIPITOR) 20 mg Oral TabletIndication s:High cholesterol Take 1 Tablet by mouth daily. 90 Tablet 3 5 Active oxyCODONE (ROXICODONE) 5 mg Oral Tablet Take 1 Tablet by mouth every 4 hours as needed for Major Surgery/Trauma (G89.18). 5 Tablet 5 Active Additional Information Patient not taking.Reason: Therapy Completed, Informant: Self/Patient, Reported on 02/12/2025 ergocalciferol (DRISDOL) 1,250 mcg (50,000 unit) Oral CapsuleIndicatio ns:Vitamin D deficiency Take 1 Capsule by mouth once a week. 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 Offered design technology professor referral and he declines. Orders: HEMOGLOBIN A1C; Future VITAMIN D 25 HYDROXY; Future VITAMIN B12/ FOLIC ACID; Future Suspected sleep apnea 05/13/2024 Assessment & Plan (05/13/2024 9:16 AM EST): Orders: AMB REFERRAL TO SLEEP STUDIES/MEDICINE Hypermetropia, bilateral 02/23/2021 Astigmatism, bilateral 02/23/2021 Gastroesophageal reflux disease 11/04/2020 Assessment & Plan (09/17/2024 10:10 AM EDT): Restart PPI [place] diet Orders: omeprazole (PRILOSEC) 40 mg Oral Capsule, Delayed Release(E.C.); Take 1 Capsule by mouth daily. Assessment & Plan (05/13/2024 9:16 AM EST): Improved on PPI Generalized anxiety disorder 11/04/2020 Allergic rhinitis due to cats 11/04/2020 Resolved Problems Problem Noted Date Diagnosed Date Resolved Date Atypical chest pain 05/13/2024 05/13/20 Methamphetamine use disorder , moderate, in early remission 02/01/2021 09/17/2024 Obesity, Class I, BMI 30-34.9 11/04/2020 05/13/2024 Cigarette nicotine dependenc e with nicotine-induced disorder 11/04/2020 09/17/2024 Shortness of breath 11/04/2020 05/13/20 Advanced directives, counseling/discussion 11/03/2020 05/13/2024 Overview (11/03/2020): Wants to be DNR. Assessment & Plan (11/04/2020 2:20 PM EDT): Wants to be DNR. Discussed doing advanced directive and completing EMS DNR paperwork. Plans on discssing with family and then will make appt with [facility] or SW to complete paperwork. Immunizations Immunization Administration Dates Next Due DTaP, Unspecified Formulation 07/06/2004 ,03/31/2002,01/14/2001,11/13,2000 Flucelvax 04/20/2024 HPV Quadrivalent 03/06/2012,09/18/2011, 2 Hep B/HiB 07/02/2001,2000 Hepatitis A, Adult 09/10/2023 Hepatitis A, Ped/Adol, 2 Dose 03/06/2012, 012 Hepatitis B, Ped/Adol 11/09/2023,10/10/2023,06/18 HiB (PRP-OMP) 07/06/2004,2000 IPV 07/06/2004, 2,2000,09/11 Influenza Seasonal Injectable 03/06/2012 Influenza Vaccine Quadrivalent PF 2023,02/21/2017,06/20/2016,04/22 LAST MANUFACTURED 2011-Pneum ococcal Conjugate 7 Valent 09/30/2001,07/02/2001 MMR 07/06/2004,09/30/2001 Meningococcal B, Recombinant 01/25/2016 Meningococcal Conjugate 12/13/2017 Meningococcal Polysaccharide 07/17/2011 Tdap 07/19/2020,07/17/2011 Varicella 07/17/2011,07/02/2001 Family History Medical History Relation Name Comments No Known Problems Brother 1 Taoist No Known Problems Brother 2 Jr No Known Problems Daughter 1 No Known Problems Daughter 2 Diabetes Father Heart Disease Father no history of heart attack High Cholesterol Father Seizures Father Substance Abuse Father OD at age 68 yo - meth and heroin COPD Mother Diabetes Mother pre diabetes Thyroid Disease Mother UC or chrons Mother Substance Abuse Sister 1 Mercedes Substance Abuse Sister 3 andres Relation Name Status Comments Brother 1 Taoist Alive Brother 2 Jr Alive Daughter 1 Alive Daughter 2 Alive Father Maternal Grandfather Maternal Grandmother Mother Alive Paternal Grandfather Paternal Grandmother Sister 1 Mercedes Alive Sister 2 Yumiko Alive Sister 3 andres Social History Smoking Status as of 06/16/2025 Tobacco Use Types Packs/Day Years Used Date Smoking Tobacco: Never Assessed AUDIT-C Answer Date Recorded Q1: How often do you have a drink containing alc ohol? Never 11/03/2020 Average Number of Drinks Not on file 021 Frequency of Binge Drinking Not on file 10/16 PHQ-2 Answer Date Recorded PHQ-2 Total Score 0 05/13/2024 Sex and Gender Information Value Date Recorded Sex Assigned at Not on file Legal Sex Male 8:28 AM EDT Gender Identity Not on file Sexual Orientation Not on file Last Filed Vital Signs Vital Sign Reading Time Taken Comments Blood Pressure 144/68 11/12/2024 7:54 AM EDT Pulse 64 11/12/2024 7:54 AM EDT Temperature 36.5 C (97.7 F) 11/12/2024 7:54 AM EDT Respiratory Rate 16 11/12/2024 7:54 AM EDT Oxygen Saturation 100% 11/12/2024 7:54 AM EDT Inhaled Oxygen Concentration - - Weight 136.1 kg (300 lb) 11/12/2024 7:12 AM EDT Height 177.8 cm (5' 10 ) 11/12/2024 7:12 AM EDT Body Mass Index 43.05 11/12/2024 7:12 AM EDT Plan of Treatment Not on file Procedures Procedure Name Priority Date/Time Associated Diagnosis Comments DERMATOPATHOLOGY TISSUE SEND OUT REQUEST Routine 02/03/2025 8:53 PM EDT Dermatofibroma Pain [place] NEUROPLASTY &/TRANSPOS MEDIAN NRV CARPAL TUNNE 11/12/2024 7:30 AM EDT Left carpal tunnel syndrome Special Needs AM surgical endoscopic carpal tunnel release systemsk [place] NDSC WRST SURG W/RLS TRANSVRS CARPL LIGM 11/12/2024 7:30 AM EDT Left carpal tunnel syndrome Special Needs AM surgical endoscopic carpal tunnel release systemsk EMG Routine 10/22/2024 Bilateral carpal tunnel syndrome UNATTENDED SLEEP STUDY Routine 8:21 AM EDT Obstructive sleep apnea VITAMIN D 25 HYDROXY Routine 09/17/2024 9:46 AM EDT Vitamin D deficiency HEMOGLOBIN A1C Routine 09/17/2024 9:46 AM EDT Prediabetes LIPID PANEL REFLEX Routine 09/17/2024 9:46 AM EDT High cholesterol COMPREHENSIVE METABOLIC PANEL Routine 09/17/2024 9:46 AM EDT Elevated liver enzymes HEMOCHROMATOSIS MUTATION DETECTION, HEREDITARY -REF LAB Routine 05/29/2024 4:01 PM EST Elevated liver enzymes LIPID PANEL REFLEX Routine 05/29/2024 4:01 PM EST High cholesterol LIPOPROTEIN (A) Routine 05/29/2024 4:01 PM EST High cholesterol APOLIPOPROTEIN B-REF LAB Routine 05/29/2024 4:01 PM EST High cholesterol FERRITIN Routine 05/29/2024 4:01 PM EST Elevated liver enzymes IRON+TIBC Routine 05/29/2024 4:01 PM EST Elevated liver enzymes HEPATIC FUNCTION PANEL Routine 4:01 PM EST Elevated liver enzymes XR CHEST PA AND LATERAL Routine 05/27/2024 12:53 PM EST Cough, unspecified type US RIGHT UPPER QUADRANT Routine 05/27/2024 11:42 AM EST Elevated liver enzymes SYPHILIS SCREEN WITH REFLEX RPR QUANT Routine 05/13/2024 9:11 AM EST Screening for STDs (sexually transmitted diseases) HIV AG/AB Routine 05/13/2024 9:11 AM EST Screening for STDs (sexually transmitted diseases) ACUTE HEPATITIS PANEL Routine 05/13/2024 9:11 AM EST Need for hepatitis C screening test Screening for STDs (sexually transmitted diseases) VITAMIN B12/ FOLIC ACID Routine 05/13/2024 9:11 AM EST Obesity, Class III, BMI 40-49.9 (morbid obesity) (HCC) VITAMIN D 25 HYDROXY Routine 05/13/2024 9:11 AM EST Obesity, Class III, BMI 40-49.9 (morbid obesity) (HCC) T4, FREE (THYROXINE) Routine 05/13/2024 9:11 AM EST Screening for thyroid disorder TSH REFLEX TO FT4 Routine 05/13/2024 9:11 AM EST Screening for thyroid disorder LIPID SCREEN Routine 05/13/2024 9:11 AM EST Lipid screening HEMOGLOBIN A1C Routine 05/13/2024 9:11 AM EST Obesity, Class III, BMI 40-49.9 (morbid obesity) (HCC) COMPREHENSIVE METABOLIC PANEL Routine 05/13/2024 9:11 AM EST Annual physical exam CBC WITH DIFF Routine 05/13/2024 9:11 AM EST Annual physical exam CORONAVIRUS 2019 Routine 05/26/2021 8:56 AM EST Cough POCT INFLUENZA A/B Routine 05/26/2021 8:55 AM EST Cough POCT PORTIA SARS ANTIGEN Routine 05/26/2021 8:55 AM EST Cough XR CHEST PA AND LATERAL Routine 11/19/2020 1:19 PM EDT Cigarette nicotine dependence with nicotine-induced disorder TSH REFLEX TO FT4 Routine 11/03/2020 10:23 AM EDT Screening for thyroid disorder VITAMIN D 25 HYDROXY Routine 11/03/2020 10:23 AM EDT Encounter for vitamin deficiency screening IRON/UIBC Routine 11/03/2020 10:23 AM EDT Screening for deficiency anemia Encounter for vitamin deficiency screening VITAMIN B12/ FOLIC ACID Routine 11/03/2020 10:23 AM EDT Screening for deficiency anemia Encounter for vitamin deficiency screening HEMOGLOBIN A1C Routine 11/03/2020 10:23 AM EDT Screening for diabetes mellitus (DM) LIPID SCREEN Routine 11/03/2020 10:23 AM EDT Screening for hyperlipidemia COMPREHENSIVE METABOLIC PANEL Routine 11/03/2020 10:23 AM EDT Screening for diabetes mellitus (DM) Screening for hyperlipidemia CBC WITH DIFF Routine 11/03/2020 10:23 AM EDT Screening for deficiency anemia Results * DERMATOPATHOLOGY TISSUE SEND OUT REQUEST (02/03/2025 8:53 PM EDT) Tissue Song Reyes MD PATHOLOGY ORDERABLES Final Res ult Performing Organization Address [facility] Co de Phone Number [facility] [address] [place] [address] * (ABNORMAL) EMG (10/22/2024) Impressions SEP OFFICE - 10/22/2024 This is an abnormal study There is evidence of bilateral median neuropathies, at or distal to the wrists (consistent with carpal tunnel syndrome), mild in degree electrically bilaterally. Timothy White M.D. Diplomate, [place] [employer] Narrative SEP OFFICE - 10/22/2024 NCS Summary: Normal bilateral ulnar motor responses. Median motor responses: Normal bilaterally Right median sensory response recording digit 2 normal. Right median palmar sensory response: Normal Latency difference between right median palmar and ulnar palmar sensory response is 0.4 ms. Left median sensory response recording digit 2 prolonged. Normal bilateral ulnar and radial sensory responses. Normal right ulnar palmar sensory response. EMG Summary: Normal needle electrode examination of the bilateral upper extremities. Uday Lopez MD NEUROLOGY ORDERABLES Fin al Result Performing Organization Address [facility] Co de Phone Number SEP OFFICE * UNATTENDED SLEEP STUDY (10/09/2024 8:21 AM EDT) Pathologist Stevan REYNA OVERALL RESULT [facility] DATE OF STUDY 10/09/2024 [facility] Study Type Adult [facility] PATIENT WEIGHT 311.0 [facility] APNEA INDEX 3.9 [facility] Apnea Hypopnea Index 41.0 [facility] RDI Index 41.0 [facility] Central Apnea Index 0.0 [facility] REM AHI [facility] Min O2 Saturation 84 [facility] RDI REM [facility]DI nonREM 41.0 [facility] CPAP Device Name [facility] CPAP Pressure [facility] IPAP Pressure [facility] EPAP Pressure [facility] Auto Pressure Support [facility] Supplemental O2 [facility] Mask Type [facility] Mask Size [facility] APAP Range [facility] Auto-IPAP Max [facility] Auto-IPAP Min [facility] Pressure Support [facility] PAP Compliance % SE LAB Compliance Days [facility] Residual AHI [facility] PAP 90-95th Percentile [facility] 10/09/2024 8:21 AM EDT Avila Foster MD SLEEP CENTER ORDERABLES Final Result [facility] [address] [place] [id number] * (ABNORMAL) LIPID PANEL REFLEX (09/17/2024 9:46 AM EDT) Only the most recent of2 resultswithin the time period is included. Cholesterol 241(H) <200 mg/dL 09/17/2024 4:21 PM EDT [employer] Comment: < 200 Desirable 200 - 239 Borderline High >= 240 High Triglyceride 133 <150 mg/dL 09/17/2024 4:21 PM EDT [employer] Comment: < 150 Normal 150 - 199 Borderline High 200 - 499 High >= 500 Very High HDL 35(L) >=40 mg/dL 09/17/2024 4:21 PM EDT [employer] Comment: > 60 Optimal 40 - 60 Acceptable < 40 Low LDL Calculated 181(H) <100 mg/dL 09/17/2024 4:21 PM EDT [employer] Comment: < 100 Optimal 100 - 129 Near or above optimal 130 - 159 Borderline High 160 - 189 High >= 190 Very High The National Institutes of Health (NIH) equation is used for all lipid panels that report calculated LDL (LDL-C). Non-HDL-C Calculated 206(H) <=129 mg/dL 09/17/2024 4:21 PM EDT [employer] Comment: <130 Desirable 130-159 Above Desirable 160-189 Borderline High 190-219 High >= 220 Very High Fasting Specimen? Yes None 025 4:21 PM EDT [employer] Blood VENOUS BLOOD / Unknown Venipuncture / Unknown 09/17/2024 9:46 AM EDT 09/17/2024 9:46 AM EDT us Melinda Salcidoing HOUSE ADMIN CHEMISTRY ORDERABLES Final Result Performing Organization Address [facility] de Phone Number [facility] [employer] [address] , [place] [address] * VITAMIN D 25 HYDROXY (09/17/2024 9:46 AM EDT) Only the most recent of3 resultswithin the time period is included. Pathologist [facility] Vit D 25 OH 38.7 30.0 - 150.0 ng/mL 09/17/2024 4:25 PM EDT [employer] Comment: Preferred: >= 30 ng/mL Insufficient: 21-29 ng/mL Deficient <= 20 ng/mL Possible Toxicity: >150 ng/mL Samples should not be taken from patients receiving therapy with high biotin doses (i.e. > 5 mg/day) until at least 8 hours following the last biotin administration. Blood VENOUS BLOOD / Unknown Venipuncture / Unknown 09/17/2024 9:46 AM EDT 09/17/2024 9:46 AM EDT [facility] CHEMI[facility] ORDERABLES Final Result Performing Organization Address [facility] de Phone Number [facility] [employer] [address] [place] [address] * HEMOGLOBIN A1C (09/17/2024 9:46 AM EDT) Only the most recent of3 resultswithin the time period is included. [facility] Hgb A1C 5.3 4.2 - 5.6 % 09/17/2024 3:51 PM EDT [facility] [employer], [employer] Est. Avg Glucose 105 mg/dL 09/17/2024 3:51 PM EDT [employer] Blood VENOUS BLOOD / Unknown Venipuncture / Unknown 09/17/2024 9:46 AM EDT 09/17/2024 9:46 AM EDT Narrative [facility]REFERR[facility] [employer], [employer] - 09/17/2024 3:51 PM EDT REFERENCE RANGE: Normal: 4.0-5.6% Pre-diabetes: 5.7-6.4% Provisional diagnosis of diabetes: >6.4% Hgb F>10% and anything which shortens red cell survival, such as hemolytic anemia, or unstable hemoglobin variants such as HbSS, HbSC, or HbCC, will lower the HbA1c value associated with a given level of glycemic control. Melinda Yañez HOUSE ADMIN CHEMISTRY ORDERABLES Final Result [facility] [address] [facility] , [place] [address] * (ABNORMAL) COMPREHENSIVE METABOLIC PANEL (09/17/2024 9:46 AM EDT) Only the most recent of3 resultswithin the time period is included. Sodium 140 136 - 145 mmol/L 09/17/2024 4:21 PM EDT [facility] Potassium 5.3(H) 3.5 - 5.0 mmol/L 09/17/2024 4:21 PM EDT [facility] Chloride 105 98 - 107 mmol/L 09/17/2024 4:21 PM EDT [facility] Total CO2 24 22 - 29 mmol/L 09/17/2024 4:21 PM EDT [facility] Anion Gap 11 7 - 16 mmol/L 09/17/2024 4:21 PM EDT [facility] Calcium 10.1 8.6 - 10.4 mg/dL 09/17/2024 4:21 PM EDT [facility] Glucose Lvl 109(H) 70 - 99 mg/dL 09/17/2024 4:21 PM EDT [facility] BUN 20 6 - 20 mg/dL 09/17/2024 4:21 PM EDT [facility] Creatinine 1.15 0.67 - 1.30 mg/dL 09/17/2024 4:21 PM EDT [facility] Albumin 4.7 3.5 - 5.2 gm/dL 09/17/2024 4:21 PM EDT [facility] Total Protein 7.7 6.4 - 8.3 gm/dL 09/17/2024 4:21 PM EDT [facility] Bili Total 0.3 0.2 - 1.4 mg/dL 09/17/2024 4:21 PM EDT [facility] ALT 29 <=41 U/L 09/17/2024 4:21 PM EDT [facility] AST 24 <=40 U/L 09/17/2024 4:21 PM EDT [facility] Alk Phos 98 40 - 129 U/L 09/17/2024 4:21 PM EDT [facility] eGFR (CKD-EPIcr 2020) 91 >=60 mL/min/1.7 3 m2 09/17/2024 4:21 PM EDT [facility] Comment:Estimated GFR was ca lculated using the CKD-EPIcr (2020) equation refit without race. The equation is recommended by the National Kidney Foundation - [place] [employer] of Nephrology Task Force. Blood VENOUS BLOOD / Unknown Venipuncture / Unknown 09/17/2024 9:46 AM EDT 09/17/2024 9:46 AM EDT [facility] Pari HOUSE ADMIN CHEMISTRY ORDERABLES Final Result Performing Organization Address [facility] Co de Phone Number [facility], [address] , [place] [address] * (ABNORMAL) LIPOPROTEIN (A) (05/29/2024 4:01 PM EST) Pathologist [facility] Lipoprotein (a) 104(H) <30 mg/dL 9:59 PM EST [facility] [employer], [facility] Blood VENOUS BLOOD / Unknown Venipuncture / Unknown 05/29/2024 4:01 PM EST 05/29/2024 4:01 PM EST [employer] HOUSE ADMIN CHEMISTRY ORDERABLES Final Result Performing Organization Address [facility]/ZIP Co de Phone Number [facility], [facility] [address] [facility] , [place] [address] * IRON+TIBC (05/29/2024 4:01 PM EST) Pathologist [facility] Iron 83 50 - 170 mcg/dL 05/29/2024 9:17 PM EST [facility] Transferrin 247 200 - 360 mg/dL 05/29/2024 9:17 PM EST [facility] Transferrin Saturation 24 20 - 50 % 05/29/2024 9:17 PM EST [facility] TIBC 346 250 - 400 mcg/dL 05/29/2024 9:17 PM EST [facility] Blood VENOUS BLOOD / Unknown Venipuncture / Unknown 05/29/2024 4:01 PM EST 05/29/2024 4:[address] [facility] Final Result [facility] [address] [facility], [place] [address] * APOLIPOPROTEIN B-REF LAB (05/29/2024 4:01 PM EST) Apolipoprotein B 105 66 - 133 mg/dL 05/31/2024 12:42 PM EST [employer] Comment: REFERENCE INTERVAL: Apolipoprotein B A desirable fasting serum Apo B concentration for the prevention of atherosclerotic cardiovascular disease in adults is less than 90 mg/dL. A fasting serum Apo B concentration of 130 mg/dL or greater corresponds to a LDL cholesterol concentration greater than 160 mg/dL and constitutes a risk enhancing factor for atherosclerotic cardiovascular disease in adults. Performed By: [employer] [address] [place] [address] Visually Impaired Teacher: Uday Gurrola MD, PhD CLIA Number: [id number] Blood VENOUS BLOOD / Unknown Venipuncture / Unknown 05/29/2024 4:01 PM EST 05/29/2024 4:01 PM EST [employer] HOUSE ADMIN CHEMISTRY ORDERABLES Final Result Performing Organization Address City/[facility]/ZIP Co de Phone Number [employer] [address] [place] [address] * HEMOCHROMATOSIS MUTATION DETECTION, HEREDITARY -REF LAB (05/29/2024 4:01 PM EST) C282Y Heterozygous 06/05/2024 10:10 AM EST [facility] H63D Negative 06/05/2024 10:10 AM EST [facility] S65C Negative 06/05/2024 10:10 AM EST [employer] , [facility] Hemochromatosis Mutation Inter See Note 06/05/2024 10:10 AM EST [employer] [facility] Comment: Indication for testing: Carrier screening or diagnostic testing for hereditary hemochromatosis. 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 H63D: Negative - The patient is negative for the HFE H63D mutation. S65C: Negative - The patient is negative for the HFE S65C mutation. Although this genotype may correlate with increased serum iron and transferrin saturation, it is rarely associated with symptoms of hereditary hemochromatosis. This result has been reviewed and approved by Evelia Sexton M.D., Ph.D. BACKGROUND INFORMATION: Hemochromatosis (HFE) 3 Mutations CHARACTERISTICS: Disorder of iron metabolism resulting in excessive iron storage leading to increased skin pigmentation, arthritis, hypogonadism, diabetes mellitus, heart arrhythmias/failure, cirrhosis and liver carcinoma. INCIDENCE: One in 300 individuals of [place] descent; unknown in other ethnicities. INHERITANCE: Autosomal recessive. PENETRANCE: 5 percent of C282Y homozygotes, 1 percent of C282Y/H63D compound heterozygotes and rare H63D homozygotes develop clinical symptoms. CAUSE: Two pathogenic HFE gene mutations on opposite chromosomes. MUTATIONS TESTED: p.C282Y (c.845G>A), p.H63D (c.187C>G), and p.S65C (c.193A>T). CLINICAL SENSITIVITY: 85 percent of hereditary hemochromatosis in Northern Europeans is caused by C282Y homozygosity and 5 percent by C282Y/H63D compound heterozygosity. METHODOLOGY: PCR and fluorescence monitoring. ANALYTICAL SENSITIVTY AND SPECIFICITY: 99 percent. LIMITATIONS: HFE mutations, other than those targeted, will not be detected. Diagnostic errors can occur due to rare sequence variations. This test was developed and its performance characteristics determined by [employer]. It has not been cleared or approved by the US Food and Drug Administration. This test was performed in a CLIA certified laboratory and is intended for clinical purposes. Counseling and informed consent are recommended for genetic testing. Consent forms are available online. Performed By: [employer] [address] [place] [address] Visually Impaired Teacher: Uday Gurrola MD, PhD CLIA Number: [id number] HFE PCR specimen Whole Blood 024 10:10 AM EST [facility] Blood VENOUS BLOOD / Unknown Venipuncture / Unknown 05/29/2024 4:01 PM EST 05/29/2024 4:01 PM EST [facility] IMMUNOLOGY ORDERABLES Final Result Performing Organization Address [facility]/ZIP Co de Phone Number [facility] [address] [place] [address] * FERRITIN (05/29/2024 4:01 PM EST) Pathologist [facility] Ferritin 115 30 - 400 ng/mL 05/29/2024 9:43 PM EST [facility] [employer] Blood VENOUS BLOOD / Unknown Venipuncture / Unknown 05/29/2024 4:01 PM EST 05/29/2024 4:01 PM EST Narrative PREFERRED [employer], [employer] - 05/29/2024 9:43 PM EST Ingestion of mansoor doses of biotin (>5 mg/day) taken within 8 hours of drawing blood sample can interfere with this immunoassay test. [facility] CHEMISTRY ORDERABLES Final Result Performing Organization Address City/[facility]/ZIP Co de Phone Number PREFERR[facility] [employer] [address] [place] [address] , [place] [address] * (ABNORMAL) HEPATIC FUNCTION PANEL (05/29/2024 4:01 PM EST) Total Protein 7.4 6.4 - 8.3 gm/dL 05/29/2024 9:17 PM EST [facility] [employer], [employer] Albumin 4.5 3.5 - 5.2 gm/dL 05/29/2024 9:17 PM EST [facility] [employer], [employer] Bili Direct <0.2 0.0 - 0.3 mg/dL 05/29/2024 9:17 PM EST [facility] [employer], [employer] Bili Total 0.2 0.2 - 1.4 mg/dL 05/29/2024 9:17 PM EST [facility] AST 26 <=40 U/L 05/29/2024 9:17 PM EST [facility] ALT 42(H) <=41 U/L 05/29/2024 9:17 PM EST [facility] [employer], [facility] Alk Phos 90 40 - 129 U/L 05/29/2024 9:17 PM EST [facility] [employer], [facility] Blood VENOUS BLOOD / Unknown Venipuncture / Unknown 05/29/2024 4:01 PM EST 05/29/2024 4:01 PM EST us Melinda Yañez HOUSE ADMIN CHEMISTRY ORDERABLES Final Result [facility] [employer], [facility] [address] [facility] , [place] [address] * XR CHEST PA AND LATERAL (05/27/2024 12:53 PM EST) Only the most recent of2 resultswithin the time period is included. Anatomical Region Laterality Modality Chest Radiographic Ruthie ging 05/27/2024 12:5 3 PM EST Impressions 05/27/2024 12:59 PM EST No acute finding. - Note: Radiology results need to be interpreted within a comprehensive clinical context. If you have questions about the radiology report, please contact the office of the ordering clinician. Narrative 05/27/2024 12:59 PM EST PA AND LATERAL CHEST X-RAY, 05/27/2024 12:53 PM CLINICAL HISTORY: R05.9-Cough, [id number] COMPARISON: 11/19/2020 PROCEDURE COMMENTS: Frontal and lateral views of the chest. FINDINGS: Heart and mediastinal contours within normal limits for technique. No active failure, pneumonia, or visible effusion. No visible pneumothorax. Procedure Note Rebecca Lopez MD - 05/27/2024 PA AND LATERAL CHEST X-RAY, 05/27/2024 12:53 PM CLINICAL HISTORY: R05.9-Cough, [id number] COMPARISON: 11/19/2020 PROCEDURE COMMENTS: Frontal and lateral views of the chest. FINDINGS: Heart and mediastinal contours within normal limits for technique. Noactive failure, pneumonia, or visible effusion. No visible pneumothorax. IMPRESSION: No acute finding. - Note: Radiology results need to be interpreted within a comprehensiveclinical context. If you have questions about the radiology report, please contactthe office of the ordering clinician. us Parker Cornell MD IMG DIAGNOSTIC IMAGING ORDERAB LES Final Result * US RIGHT UPPER QUADRANT (05/27/2024 11:42 AM EST) Anatomical Region Laterality Modality Abdomen Ultrasound 05/27/2024 11:4 2 AM EST Impressions 05/27/2024 12:32 PM EST Unremarkable right upper quadrant ultrasound. - - Narrative 05/27/2024 12:32 PM EST US RIGHT UPPER QUADRANT, 05/27/2024 11:42 AM CLINICAL HISTORY: R74.8-Abnormal levels of other serum [id number]. COMPARISON: None. PROCEDURE COMMENTS: Ultrasound examination of the right upper quadrant performed by the technologist. Sent to PACS along with tech notes for radiologist review. FINDINGS: Gallbladder: Normal. Davis's sign: Negative. Liver: Normal in size and echotexture. No focal lesion. Common bile duct: Measures 4 mm. (Normal is 6mm or less. If there has been cholecystectomy, normal is 10mm or less.) Pancreas: Visualized portions are normal. Other: Right kidney non-hydronephrotic. Procedure Note Rebecca Lopez MD - 05/27/2024 US RIGHT UPPER QUADRANT, 05/27/2024 11:42 AM CLINICAL HISTORY: R74.8-Abnormal levels of other [id number]. COMPARISON: None. PROCEDURE COMMENTS: Ultrasound examination of the right upper quadrantperformed by the technologist. Sent to PACS along with tech notes for radiologistreview. FINDINGS: Gallbladder: Normal. Davis's sign: Negative. Liver: Normal in size and echotexture. No focal lesion. Common bile duct: Measures 4 mm. (Normal is 6mm or less. If there hasbeen cholecystectomy, normal is 10mm or less.) Pancreas: Visualized portions are normal. Other: Right kidney non-hydronephrotic. IMPRESSION: Unremarkable right upper quadrant ultrasound. - - us Melinda Pari HOUSE ADMIN IMG US ORDERABLES Final Res ult * HIV AG/AB (05/13/2024 9:11 AM EST) [facility] HIV Ag/AB Non-Reactiv e Non-Reacti ve 05/13/2024 6:11 PM EST [employer] Blood VENOUS BLOOD / Unknown Venipuncture / Unknown 05/13/2024 9:11 AM EST 05/13/2024 9:11 AM EST us Melinda Pari HOUSE ADMIN IMMUNOLOGY ORDERABLES Final Result Performing Organization Address [facility] Co de Phone Number [employer] [address] [place] [address] , [place] [phone] * SYPHILIS SCREEN WITH REFLEX RPR QUANT (05/13/2024 9:11 AM EST) [facility] Trep Ab Index 0.06 <=0.99 Index Value 05/13/2024 6:11 PM EST [employer] Comment: < 1.00 - Non-Reactive >=1.00 - Reactive NOTE: All reactive results will be reflexed to Quantitative Non-Treponemal(RPR)test. Blood VENOUS BLOOD / Unknown Venipuncture / Unknown 05/13/2024 9:11 AM EST 05/13/2024 9:11 AM EST us Melinda Pari HOUSE ADMIN CHEMISTRY ORDERABLES Final Result Performing Organization Address [facility] Co de Phone Number [employer] [address] [place] [address] , [place] [address] * VITAMIN B12/ FOLIC ACID (05/13/2024 9:11 AM EST) Only the most recent of2 resultswithin the time period is included. [facility] Vitamin B12 504 232 - 1,245 pg/mL 05/13/2024 4:05 PM EST [employer] Folate 12.90 >=4.50 ng/mL 05/13/2024 4:05 PM EST [employer] Blood VENOUS BLOOD / Unknown Venipuncture / Unknown 05/13/2024 9:11 AM EST 05/13/2024 9:11 AM EST Narrative [facility] [employer] [facility] - 05/13/2024 4:05 PM EST Ingestion of mansoor doses of biotin (>5 mg/day) taken within 8 hours of drawing blood sample can interfere with this immunoassay test. [facility] CHEMISTRY ORDERABLES Final Result Performing Organization Address [facility] de Phone Number [facility] [employer] , [place] [phone] * TSH REFLEX (05/13/2024 9:11 AM EST) Only the most recent of2 resultswithin the time period is included. TSH Reflex 1.540 0.270 - 4.200 mcIU/mL 05/13/2024 5:47 PM EST [facility] [employer] [facility] Blood VENOUS BLOOD / Unknown Venipuncture / Unknown 05/13/2024 9:11 AM EST 05/13/2024 9:11 AM EST Narrative [facility] [employer] [facility] - 05/13/2024 5:47 PM EST Ingestion of mansoor doses of biotin (>5 mg/day) taken within 8 hours of drawing blood sample can interfere with this immunoassay test. [facility] Final Result Performing Organization Address [facility] de Phone Number [facility] [employer] , [place] [address] * ACUTE HEPATITIS PANEL (05/13/2024 9:11 AM EST) Hep Bs Ag Non-Reacti ve Non-Reacti ve 05/13/2024 6:46 PM EST [facility] [employer], [facility] Hep B Core IgM Non-Reacti ve Non-Reacti ve 05/13/2024 6:46 PM EST [facility] [employer], [facility] Hep A IgM Non-Reacti ve Non-Reacti ve 05/13/2024 6:46 PM EST [facility] Hep C Ab Non-Reacti ve Non-Reacti ve 05/13/2024 6:46 PM EST [facility] Blood VENOUS BLOOD / Unknown Venipuncture / Unknown 05/13/2024 9:11 AM EST 05/13/2024 9:11 AM EST us Melinda Salcidoing HOUSE ADMIN CHEMISTRY ORDERABLES Final Result [facility] [address] [facility] , [address] [place] [phone] * CBC WITH DIFF (05/13/2024 9:11 AM EST) Only the most recent of2 resultswithin the time period is included. WBC 8.1 3.7 - 10.3 x10(3)/mcL 05/13/2024 3:54 PM EST [facility] RBC 4.95 4.60 - 6.10 x10(6)/mcL 05/13/2024 3:54 PM EST [facility] Hgb 14.5 13.7 - 17.5 g/dL 05/13/2024 3:54 PM EST [facility] Hct 44.5 40.0 - 51.0 % 05/13/2024 3:54 PM EST [facility] MCV 89.9 80.0 - 100.0 fL 05/13/2024 3:54 PM EST [facility] MCH 29.3 26.0 - 34.0 pg 05/13/2024 3:54 PM EST [facility] MCHC 32.6 30.7 - 35.5 g/dL 05/13/2024 3:54 PM EST [facility] RDW 12.6 <=14.9 % 05/13/2024 3:54 PM EST [facility] Platelet 228 155 - 369 x10(3)/mcL 05/13/2024 3:54 PM EST [facility] MPV 11.5 8.8 - 12.5 fL 05/13/2024 3:54 PM EST [facility] Neut Percent 65.1 % 05/13/2024 3:54 PM EST [facility] Comment:Neutrophils equals s egs plus bands Imm Gran% 0.7 % 05/13/2024 3:54 PM EST [facility] Comment:Automated count of m etamyelocytes, myelocytes and promyelocytes. Lymph Percent 19.6 % 05/13/2024 3:54 PM EST [facility] [place] Percent 9.8 % 05/13/2024 3:54 PM EST [facility] Eos Percent 4.6 % 05/13/2024 3:54 PM EST [facility] Baso Percent 0.2 % 05/13/2024 3:54 PM EST [facility] Neut # 5.3 1.6 - 6.1 x10(3)/[facility] 05/13/2024 3:54 PM EST [facility] Comment:Neutrophils equals s egs plus bands IMMGRAN# 0.1 0.0 - 0.1 x10(3)/mcL 05/13/2024 3:54 PM EST [facility] Comment:Automated count of m etamyelocytes, myelocytes and promyelocytes. An absolute IG <0.1 is reported as 0.0. Lymph # 1.6 1.2 - 3.9 x10(3)/mcL 05/13/2024 3:54 PM EST [facility] [place] # 0.8 0.3 - 0.9 x10(3)/[facility] 05/13/2024 3:54 PM EST [facility] Eos# 0.4 0.0 - 0.5 x10(3)/mcL 05/13/2024 3:54 PM EST [facility] Baso # 0.0 0.0 - 0.1 x10(3)/[facility] 05/13/2024 3:54 PM EST [facility] Blood VENOUS BLOOD / Unknown Venipuncture / Unknown 05/13/2024 9:11 AM EST 05/13/2024 9:11 AM EST Melinda Yañez HOUSE ADMIN HEMATOLOGY ORDERABLES Final Result [facility] [address] [facility] , [address] [place] [phone] * T4, FREE (THYROXINE) (05/13/2024 9:11 AM EST) Free T4 1.35 0.80 - 1.80 ng/dL 05/13/2024 5:47 PM EST [employer] Blood VENOUS BLOOD / Unknown Venipuncture / Unknown 05/13/2024 9:11 AM EST 05/13/2024 9:11 AM EST Narrative [facility] [employer] [facility] - 05/13/2024 5:47 PM EST Ingestion of mansoor doses of biotin (>5 mg/day) taken within 8 hours of drawing blood sample can interfere with this immunoassay test. Melinda Yañez HOUSE ADMIN CHEMISTRY ORDERABLES Final Result [facility] [address] [facility] , [place] [address] * (ABNORMAL) LIPID SCREEN (05/13/2024 9:11 AM EST) Only the most recent of2 resultswithin the time period is included. Cholesterol 273(H) <200 mg/dL 05/13/2024 5:47 PM EST [employer] Comment: < 200 Desirable 200 - 239 Borderline High >= 240 High Triglyceride 117 <150 mg/dL 05/13/2024 5:47 PM EST [employer] Comment: < 150 Normal 150 - 199 Borderline High 200 - 499 High >= 500 Very High HDL 46 >=40 mg/dL 05/13/2024 5:47 PM EST [employer] Comment: > 60 Optimal 40 - 60 Acceptable < 40 Low LDL Calculated 206(H) <100 mg/dL 05/13/2024 5:47 PM EST [employer] Comment: < 100 Optimal 100 - 129 Near or above optimal 130 - 159 Borderline High 160 - 189 High >= 190 Very High Non-HDL-C Calculated 227(H) <=129 mg/dL 05/13/2024 5:47 PM EST [employer] Comment: <130 Desirable 130-159 Above Desirable 160-189 Borderline High 190-219 High >= 220 Very High Fasting Specimen? Yes None 024 5:47 PM EST [facility] Blood VENOUS BLOOD / Unknown Venipuncture / Unknown 05/13/2024 9:11 AM EST 05/13/2024 9:11 AM EST Melinda Yañez APRN CHEMISTRY ORDERABLES Final Result Performing Organization Address [facility] Co de Phone Number [employer] [facility] [address] [facility] , [place] [address] [facility] [address] [place], [place] [phone] * CORONAVIRUS 2019 (05/26/2021 8:56 AM EST) [facility] CORONAVIRUS [id number] Not Detected Not Detected 05/26/2021 8:46 PM EST [facility] [employer] [facility] Comment: Caution should be exercised when interpreting a result of 'Not Detected'. A result of 'Not Detected' does not rule out COVID-19 and cannot be used as sole basis for treatment or patient management decisions. If COVID-19 is still suspected following a 'Not Detected' result, re-testing should be considered. This test is a nucleic acid amplification test intended for the qualitative detection of nucleic acid from the SARS-CoV-2 in upper respiratory samples collected from individuals suspected of COVID-19. Test is performed on the [employer] platform under the FDA's Emergency Use Authorization (EUA). Asterisk Provider Fact Sheet: https://www.fda.gov/media/840033/download Asterisk Patient Fact Sheet: https://www.fda.gov/media/968760/download Performed at [facility] [address] [place] [address] CLIA [id number] Swab BOTH ANTERIOR NARES / Unknown 05/26/2021 8:56 AM EST 05/26/2021 8:56 AM EST Melinda Yañez APRN MICROBIOLOGY - GENERAL ORDE RABLES Final Result Performing Organization Address [facility]/ZIP Co de Phone Number [employer] [address] [facility] , [place] [address] * POCT PORTIA SARS ANTIGEN (05/26/2021 8:55 AM EST) SARS Antigen Negative Negative SEP OFFICE Lot Number SEP OFFICE Expiration Date SEP OFFICE SeriAl # SEP OFFICE Control Line Yes YES/NO SEP OFFICE 05/26/2021 8:55 AM EST Melinda Pari HOUSE ADMIN POINT OF CARE TEST ORDERABL ES Final Result SEP OFFICE * POCT INFLUENZA A/B (05/26/2021 8:55 AM EST) Influenza A Ag neg SEP OFFICE Influenza B Ag neg SEP OFFICE Lot Number na SEP OFFICE Expiration Date na SEP OFFICE Flu Blue Control Line (positive internal control) Yes SEP OFFICE Clear Background (negative internal control) Yes Yes/No SEP OFFICE 05/26/2021 8:55 AM EST Melinda Pari HOUSE ADMIN POINT OF CARE TEST ORDERABL ES Final Result Performing Organization Address City/[facility]/ZIP Co de Phone Number SEP OFFICE * (ABNORMAL) IRON/UIBC (11/03/2020 10:23 AM EDT) Iron 49(L) 50 - 170 mcg/dL 11/03/2020 4:54 PM EDT [facility] UIBC 252 112 - 347 mcg/dL 11/03/2020 4:54 PM EDT [facility] Transferrin Sat 16(L) 20 - 50 % 4:54 PM EDT [facility] Blood VENOUS BLOOD / Unknown Venipuncture / Unknown 11/03/2020 10:23 AM EDT 11/03/2020 10:26 AM EDT Danuta Alexandre MD CHEMISTRY ORDERABLE S Final Result [facility] [address] [facility] , [place] [address] Visit Diagnoses Diagnosis Start Date Establishing care with new doctor, encounter for 11/03/2020 Well adult exam Routine general medical examination at a health care facility 11/03/2020 Advanced directives, counseling/discussion Other specified counseling 11/03/2020 Screening for deficiency anemia Screening for other and unspecified deficiency anemia 11/03/2020 Screening for diabetes mellitus (DM) Screening for diabetes mellitus 11/03/2020 Screening for hyperlipidemia Screening for lipoid disorders 11/03/2020 Screening for thyroid disorder 11/03/2020 Obesity, Class I, BMI 30-34.9 Obesity, unspecified 11/03/2020 Gastroesophageal reflux disease, unspecified whether esophagitis present 11/03/2020 Encounter for vitamin deficiency screening Screening for other and unspecified endocrine, nutritional, metabolic, and immunity disorders 11/03/2020 Cigarette nicotine dependence with nicotine-induced disorder Unspecified drug-induced mental disorder 11/03/2020 Generalized anxiety disorder 11/03/2020 Allergic rhinitis due to cats Allergic rhinitis due to animal (cat) (dog) hair and dander 11/03/2020 Shortness of breath 11/03/2020 Cigarette nicotine dependence with nicotine-induced disorder Unspecified drug-induced mental disorder 11/19/2020 Cigarette nicotine dependence with nicotine-induced disorder Unspecified drug-induced mental disorder 12/31/2020 Generalized anxiety disorder 12/31/2020 Allergic rhinitis due to cats Allergic rhinitis due to animal (cat) (dog) hair and dander 12/31/2020 Gastroesophageal reflux disease, unspecified whether esophagitis present 12/31/2020 Essential hypertension Unspecified essential hypertension 12/31/2020 Insomnia, persistent Persistent disorder of initiating or maintaining sleep 12/31/2020 Muscle spasm Spasm of muscle 12/31/2020 History of drug abuse (HCC) Other, mixed, or unspecified nondependent drug abuse, in remission 12/31/2020 Chest pain at rest Chest pain, unspecified 02/01/2021 Vitamin D deficiency Unspecified vitamin D deficiency 02/01/2021 Hyperlipidemia with target LDL less than 100 Other and unspecified hyperlipidemia 02/01/2021 Trochanteric bursitis of left hip Enthesopathy of hip region 02/01/2021 Gastroesophageal reflux disease, unspecified whether esophagitis present 02/01/2021 Methamphetamine use disorder, moderate, in early remission (HCC) 02/01/2021 Carpal tunnel syndrome on both sides Carpal tunnel syndrome 04/04/2021 Carpal tunnel syndrome of left wrist Carpal tunnel syndrome 04/08/2021 Vitamin D deficiency Unspecified vitamin D deficiency 04/27/2021 Carpal tunnel syndrome of left wrist Carpal tunnel syndrome 05/06/2021 Cough 05/26/2021 Upper respiratory tract infection, unspecified type 05/26/2021 Chest pain at rest Chest pain, unspecified 05/30/2021 Gastroesophageal reflux disease, unspecified whether esophagitis present 05/30/2021 Vitamin D deficiency Unspecified vitamin D deficiency 05/30/2021 Upper respiratory tract infection, unspecified type 06/24/2021 Vitamin D deficiency Unspecified vitamin D deficiency 09/28/2021 Chest pain at rest Chest pain, unspecified 10/25/2021 Gastroesophageal reflux disease, unspecified whether esophagitis present 10/25/2021 Cigarette nicotine dependence with nicotine-induced disorder Unspecified drug-induced mental disorder 10/25/2021 Shortness of breath 10/25/2021 Vitamin D deficiency Unspecified vitamin D deficiency 10/25/2021 Insomnia, persistent Persistent disorder of initiating or maintaining sleep 11/08/2021 Cigarette nicotine dependence with nicotine-induced disorder Unspecified drug-induced mental disorder 11/08/2021 Generalized anxiety disorder 11/08/2021 Grief Adjustment disorder with depressed mood 11/08/2021 Allergic rhinitis due to cats Allergic rhinitis due to animal (cat) (dog) hair and dander 01/24/2022 Essential hypertension Unspecified essential hypertension 01/24/2022 Annual physical exam Routine general medical examination at a health care facility 05/13/2024 Screening for thyroid disorder 05/13/2024 Lipid screening Screening for lipoid disorders 05/13/2024 Gastroesophageal reflux disease, unspecified whether esophagitis present 05/13/2024 Obesity, Class III, BMI 40-49.9 (morbid obesity) (HCC) Morbid obesity 05/13/2024 Suspected sleep apnea 05/13/2024 Peripheral edema Edema 05/13/2024 Need for hepatitis C screening test Special screening examination for other specified viral diseases 05/13/2024 Secondary hypertensive syndrome Other secondary hypertension, unspecified 05/13/2024 Screening for STDs (sexually transmitted diseases) Screening examination for venereal disease 05/13/2024 Elevated liver enzymes Nonspecific elevation of levels of transaminase or lactic acid dehydrogenase (LDH) 05/14/2024 Vitamin D deficiency Unspecified vitamin D deficiency 05/14/2024 High cholesterol Pure hypercholesterolemia 05/14/2024 Cough, unspecified type 05/26/2024 Cough, unspecified type 05/27/2024 Elevated liver enzymes Nonspecific elevation of levels of transaminase or lactic acid dehydrogenase (LDH) 05/27/2024 Elevated liver enzymes Nonspecific elevation of levels of transaminase or lactic acid dehydrogenase (LDH) 05/29/2024 High cholesterol Pure hypercholesterolemia 05/29/2024 Chronic cough Cough 05/29/2024 Ventral hernia without obstruction or gangrene Ventral hernia, unspecified, without mention of obstruction or gangrene 05/29/2024 Obesity, Class III, BMI 40-49.9 (morbid obesity) (HCC) Morbid obesity 09/08/2024 Gastroesophageal reflux disease, unspecified whether esophagitis present 09/08/2024 Cigarette nicotine dependence with nicotine-induced disorder Unspecified drug-induced mental disorder 09/08/2024 Generalized anxiety disorder 09/08/2024 Suspected sleep apnea 09/08/2024 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 Other abnormal clinical finding 09/08/2024 Carpal tunnel syndrome, unspecified laterality 09/17/2024 Gastroesophageal reflux disease, unspecified whether esophagitis present 09/17/2024 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 Other abnormal clinical finding 09/17/2024 High cholesterol Pure hypercholesterolemia 09/17/2024 History of tobacco use Personal history of tobacco use, presenting hazards to health 09/17/2024 Elevated liver enzymes Nonspecific elevation of levels of transaminase or lactic acid dehydrogenase (LDH) 09/17/2024 Prediabetes Other abnormal glucose 09/17/2024 Vitamin D deficiency Unspecified vitamin D deficiency 09/17/2024 Skin cancer screening Screening for malignant neoplasm of the skin 09/17/2024 Hx of wheezing Personal history of other diseases of respiratory system 09/17/2024 High cholesterol Pure hypercholesterolemia 09/18/2024 Obstructive sleep apnea Obstructive sleep apnea (adult) (pediatric) 09/22/2024 Obstructive sleep apnea Obstructive sleep apnea (adult) (pediatric) 10/09/2024 Bilateral carpal tunnel syndrome Carpal tunnel syndrome 10/10/2024 Bilateral carpal tunnel syndrome Carpal tunnel syndrome 10/22/2024 Right carpal tunnel syndrome Carpal tunnel syndrome 10/27/2024 Left carpal tunnel syndrome Carpal tunnel syndrome 10/27/2024 Bilateral carpal tunnel syndrome Carpal tunnel syndrome 10/27/2024 Obstructive sleep apnea Obstructive sleep apnea (adult) (pediatric) 11/04/2024 Obstructive sleep apnea Obstructive sleep apnea (adult) (pediatric) 11/04/2024 Snores Other dyspnea and respiratory abnormality 11/04/2024 Tired Other malaise and fatigue 11/04/2024 Obstructive sleep apnea Obstructive sleep apnea (adult) (pediatric) 11/04/2024 PATRIC (obstructive sleep apnea) Obstructive sleep apnea (adult) (pediatric) 11/04/2024 Left carpal tunnel syndrome Carpal tunnel syndrome 11/12/2024 Carpal tunnel syndrome, unspecified laterality 11/17/2024 Dermatofibroma Benign neoplasm of skin, site unspecified 12/25/2024 Multiple benign nevi Benign neoplasm of skin, site unspecified 12/25/2024 Lentigines Other dyschromia 12/25/2024 Dermatofibroma Benign neoplasm of skin, site unspecified 01/29/2025 Pain Generalized pain 01/29/2025 Encounter for removal of sutures 02/12/2025 Vitamin D deficiency Unspecified vitamin D deficiency 05/11/2025 Left carpal tunnel syndrome Carpal tunnel syndrome 11/12/2024 Goals Goal Patient Goal Type Associated Problems Recent Progress Patient-Stated? Author Blood Pressure < 140/90 Blood Pressure 144/68(2024 7:54 AM EDT) No Melinda Yañez APRN Maintain a healthy diet, exercise regularly and maintain an ideal body weight General No Amira Wilkinson, SUDEEP Stay Tobacco Free Lifestyle No Danuta Walter MD Care Teams Bright Cutter Relationship Specialty Start Date End Date Melinda Yañ[place] [address] [place] [address] PCP - General Nurse Practitioner-Family 05/13/24
--- OUTSIDE RECORDS SUMMARY | 2025-06-16 11:37 | XMS_ITS | Encounter Summary ---
Author Organization [place] [address] Care Team Providers Care Director Of Integrated Marketing Name Role Phone Melinda Yañez APRN Primary Care Provider [phone] Reason for Visit * Reason Comments Medication Refill Encounter Details Date Type Department Care Team (Late st Contact Info) Description 05/11/2025 Refill SEP [facility] [address] [place] [address] Melinda Yañez APRN [address] [place] [address] Medication Refill Social History Tobacco Use Types Packs/Day Years Used Date Smoking Tobacco: Former Cigarettes 1 10.8 0 06/18/2013 - 04/18/2024 Smokeless Tobacco: Never Alcohol Use Standard Drinks/Week Comments Not Currently 0 (1 standard drink = 0.6 oz pur e alcohol) AUDIT-C Answer Date Recorded Q1: How often do you have a drink containing alc ohol? Never 11/03/2020 Average Number of Drinks Not on file 021 Frequency of Binge Drinking Not on file 10/16 PHQ-2 Answer Date Recorded PHQ-2 Total Score 0 05/13/2024 Sexually Active Control Partners Comments Yes Condom Female Sex and Gender Information Value Date Recorded Sex Assigned at Not on file Legal Sex Male 8:28 AM EDT Gender Identity Not on file Sexual Orientation Not on file documented as of this encounter Functional Status * Is the person deaf or does he/she have serious difficulty hearing? Answer Date of Assessment Author No 05/13/2024 8:22 AM EST Ana May CCMAna * Is the person blind or does he/she have serious difficulty seeing even when wearing glasses? Answer Date of Assessment Author No 05/13/2024 8:22 AM LAY Lalo Ana cuong Fierro CCMAna * Does this person have serious difficulty walking or climbing stairs? Answer Date of Assessment Author No 05/13/2024 8:22 AM LAY Lalo Ana cuong Fierro CCMAna * Does this person have difficulty dressing or bathing? Answer Date of Assessment Author No 05/13/2024 8:22 AM LAY May Ana cuong Fierro CCMAna * Because of a physical, mental or emotional condition, does this person have difficulty doing errands alone such as visiting a doctor's office or shopping? Answer Date of Assessment Author No 05/13/2024 8:22 AM LAY May Ana jonesana Fierro CCMAna documented as of this encounter Mental Status * Because of a physical, mental or emotional condition, does this person have serious difficulty concentrating, remembering or making decisions? Answer Entry Date Author No 05/13/2024 8:22 AM LAY May Ana cuong Fierro CCMAna documented in this encounter Ordered Prescriptions Prescription Sig Dispense Quantity Refills Last Filled Start Date End Date ergocalciferol (DRISDOL) 1,250 mcg (50,000 unit) Oral CapsuleIndications :Vitamin D deficiency Take 1 Capsule by mouth once a week. 12 Capsule 3 05/12/2025 documented in this encounter Plan of Treatment Not on file documented as of this encounter Goals Goal Patient Goal Type Associated Problems Recent Progress Patient-Stated? Author Blood Pressure < 140/90 Blood Pressure 144/68(2024 7:54 AM EDT) No Melinda Yañez APRN Maintain a healthy diet, exercise regularly and maintain an ideal body weight General No Amira Wilkinson RMA Stay Tobacco Free Lifestyle No Danuta Walter MD documented as of this encounter Visit Diagnoses Diagnosis Vitamin D deficiency Unspecified vitamin D deficiency documented in this encounter Discontinued Medications Medication Sig Discontinue Reason Start Date End Da te ergocalciferol (VITAMIN D) 1,250 mcg (50,000 unit) Oral CapsuleIndications:Vitam in D deficiency Take 1 Capsule by mouth once a week. 05/14/2024 05/12/2025 documented as of this encounter Care Teams Director Of Integrated Marketing Relationship Specialty Start Date End Date Melinda Yañez APRN [address] [place], [place] [address] PCP - General Nurse Practitioner-Family 05/13/24 documented as of this encounter
[2025-06-16] MEDS: DEXAMETHASONE 4MG/ML 5ML MDV 8 MG IM (11:43)
[2025-06-16] MEDS: KETOROLAC 30MG/ML VIAL 30 MG IM (11:44)
[2025-06-16] MEDS: ACETAMINOPHEN 500MG TAB 1000 MG PO (11:44)
[2025-06-16 12:27] VITALS: BP 158/91; PULSE 97; RESP 16; TEMP 37; O2SAT 97
== END 2025-06-16 12:35 | disposition home or self-care (01) ==
PROVIDERS: Emergency Provider Emergency Medicine; PCP Internal Medicine
DX: R51.9 Headache, unspecified (principal); R11.2 Nausea with vomiting, unspecified; R09.89 Other specified symptoms and signs involving the circulatory and respiratory systems
CPT/HCPCS: 71045; 87636; 96372; 99283; 99284; J1100; J1885